=== PATIENT | female | born 1990 ===

== ENCOUNTER 2025-01-01 11:54 | Outpatient (CLI) | payer OTHER, SELFPAY ==
--- NOTE | 2025-01-01 12:15 | CRLHL7_ITS ---
For Patients: As a result of the Century Cures Act, medical imaging exams and procedure reports are released immediately into your electronic medical record. You may view this report before your referring provider. If you have questions, please contact your health care provider. OBSTETRICAL ULTRASOUND TRANSVAGINAL CLINICAL INDICATION: Dating and viability. LMP: 11/03/2024 [place] by LMP: 08/10/2025 Gestational age: 8 weeks 3 days Previous ultrasound: No TECHNIQUE: Real-time [place]rieta-scale imaging of the fetus was performed transvaginal. Transvaginal imaging was performed for better visualization of the endometrium and ovaries. FINDINGS: CRL: 1.40 cm, 7 weeks 5 days; [place] 08/15/2025 heart rate: 159 BPM Gestational sac: 3.05 cm, appears within normal limits Yolk sac: 3.0 mm, appears within normal limits Right ovary: 3.2 x 2.4 x 2.4 cm Left ovary: 2.1 x 1.4 x 1.4 cm COMMENT: Patient states she has 35-day cycles. IMPRESSION: Single living intrauterine measures 7 weeks 5 days with sonographic due date of 08/15/2025. TRENTON CASAREZ M.D. Diagnostic Radiologist [email or web address] Transcribed: 3:[address]/Dictated by: Trenton Casarez MD @ 01/01/2025 2:10:00 PM (Electronically Signed)
== END 2025-01-01 11:55 | disposition home or self-care (01) ==
LOC: US 11:54
PROVIDERS: Visit Provider Physician Assistant
DX: Z34.91 Encounter for supervision of normal pregnancy, unspecified, first trimester (principal); Z3A.01 Less than 8 weeks gestation of pregnancy; Z12.4 Encounter for screening for malignant neoplasm of cervix
CPT/HCPCS: 76817; 83021; 86592; 86703; 86704; 86706; 86762; 86787; 86803; 86850; 86900; 86901; 87086; 87340; 87491; 87591; 87624; 88175